=== PATIENT | female | born 1965 | race American Indian/Alaskan Native ===

== ENCOUNTER 2019-02-04 18:12 | Emergency (ER) | payer OTHER ==
[2019-02-04 19:39] VITALS: BP 147/74
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
[2019-02-04] MEDS ORDERED: IBUPROFEN PO ONE (20:26)
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
== END 2019-02-04 21:45 | disposition home or self-care (01) ==
LOC: ED 18:12
DX: S76.011A Strain of muscle, fascia and tendon of right hip, initial encounter (principal); S39.012A Strain of muscle, fascia and tendon of lower back, initial encounter; V89.2XXA Person injured in unspecified motor-vehicle accident, traffic, initial encounter; Y93.89 Activity, other specified; Y92.488 Other paved roadways as the place of occurrence of the external cause; Y99.8 Other external cause status
CPT/HCPCS: 72100; 99283